=== PATIENT | female | born 1955 | race Two or more races ===

== ENCOUNTER 2021-03-08 02:07 | Emergency (ER) | payer MEDICARE ==
[~2021-03-08] VITALS: Ht 167.6 cm; Wt 100.0 kg
[2021-03-08] MEDS ORDERED: IPRATROPIUM BROMIDE (0.02%) 0.5MG/2.5ML NEB HHN STA ×2 (02:24→04:21)
[2021-03-08] MEDS ORDERED: METHYLPREDNISOLONE SOD SUCC 125 MG/2 ML VIAL IV STA (02:24)
[2021-03-08] MEDS ORDERED: MAGNESIUM 2 G PREMIX 50 ML IV STA (02:24)
[2021-03-08] MEDS ORDERED: ALBUTEROL (0.083%) 2.5MG/3ML NEB HHN STA ×2 (02:24→04:21)
[2021-03-08] MEDS ORDERED: P20 MT (04:23)
[2021-03-08 06:01] VITALS: BP 152/77
== END 2021-03-08 06:05 | disposition home or self-care (01) ==
LOC: ER 02:07
DX: J44.1 Chronic obstructive pulmonary disease with (acute) exacerbation (principal); I10 Essential (primary) hypertension; Z92.89 Personal history of other medical treatment; Z88.0 Allergy status to penicillin
CPT/HCPCS: 71045; 93005; 94644; 96365; 96375; 99285; J2930; J3475

== ENCOUNTER 2021-06-21 11:51 | Emergency (ER) | payer MEDICARE ==
[~2021-06-21] VITALS: Ht 154.9 cm; Wt 77.0 kg
[~2021-06-21 11:51] MED LIST: P20 MT
[2021-06-21] MEDS ORDERED: METHYLPREDNISOLONE SOD SUCC 125 MG/2 ML VIAL IV STA (12:11)
[2021-06-21] MEDS ORDERED: IPRATROPIUM BROMIDE (0.02%) 0.5MG/2.5ML NEB HHN STA (12:11)
[2021-06-21] MEDS ORDERED: KETOROLAC 15MG/ML VIAL IV ONE (12:15)
[2021-06-21] MEDS: ALBUTEROL (0.083%) 2.5MG/3ML NEB HHN SCH ×3 (13:00→13:30)
[2021-06-21 13:10] LABS: HEMATOCRIT. 36.8 % (36.0-48.0); HEMOGLOBIN. 12.7 g/dL (12.0-16.0); MEAN CORPUSCULAR HEMOGLOBIN 29.2 pg (28.0-32.0); MEAN CORPUSCULAR VOLUME 84.8 fL (81.0-99.0); MEAN PLATELET VOLUME 8.5 fl (7.4-10.4); PLATELET 203 x1000/uL (130-400); RED BLOOD CELL COUNT 4.34 mill/uL (4.2-5.4); RED CELL DISTRIBUTION WIDTH 14.4 % (11.6-14.6)
[2021-06-21 13:14] LABS: CHLORIDE 111 mEq/L (98-107)
[2021-06-21 14:04] LABS: PLATELET ESTIMATE NORMAL
[2021-06-21] MEDS ORDERED: AZITHROMYCIN 500 MG/250 ML IV ONE (15:00)
[2021-06-21] MEDS ORDERED: AZITHROMYCIN 500MG/250ML 250 ML IV ONE (15:15)
[2021-06-21] MEDS ORDERED: ONDANSETRON HCL 4MG/2ML INJ IV ONE (16:30)
[2021-06-21 18:32] VITALS: BP 127/78
== END 2021-06-21 18:36 | disposition short-term general hospital (02) ==
LOC: ER 11:51 → CANBEDREQ 18:07 → ER 18:36
DX: J45.901 Unspecified asthma with (acute) exacerbation (principal); J44.1 Chronic obstructive pulmonary disease with (acute) exacerbation; Z20.822 Contact with and (suspected) exposure to COVID-19; I10 Essential (primary) hypertension
CPT/HCPCS: 36415; 71045; 80053; 83880; 84484; 85025; 87426; 93005; 94640; 96374; 96375; 99285; J0456; J1885; J2405; J2930

== ENCOUNTER 2024-07-06 03:30 | Emergency (ER) | payer MEDICARE ==
[~2024-07-06] VITALS: Ht 154.9 cm; Wt 69.0 kg
[~2024-07-06 03:30] MED LIST changes: +ALPR1TAB2 PO; +AMLO10TA80 MT; +BUDE6.9H INH; +DIPH25CA83 PO; +IPRA3AMP9 NEB; +MONT-46 PO; +TRAZ-252 PO
[2024-07-06 03:32] VITALS: TEMP 98.1
[2024-07-06] MEDS ORDERED: DEXAMETHASONE 10 MG/ML VIAL IM ONE (03:45)
[2024-07-06] MEDS: DEXAMETHASONE 10 MG/ML VIAL IV ONE (04:25)
[2024-07-06 04:35] LABS: HEMOGLOBIN. 12.5 g/dL (12.0-16.0); MEAN CORPUSCULAR HEMOGLOBIN 27.8 pg (28.0-32.0); MEAN CORPUSCULAR HGB CONC 31.2 g/dL (31.0-37.0); MEAN CORPUSCULAR VOLUME 89.1 fL (81.0-99.0); MEAN PLATELET VOLUME 8.3 fl (7.4-10.4); PLATELET 212 x1000/uL (130-400); RED BLOOD CELL COUNT 4.49 mill/uL (4.2-5.4); RED CELL DISTRIBUTION WIDTH 15.5 % (11.6-14.6); WHITE BLOOD COUNT 6.3 x1000/uL (4.5-11.0)
[2024-07-06 04:41] LABS: CHLORIDE 110 mEq/L (98-107); POTASSIUM 3.8 mEq/L (3.5-5.1); SODIUM 143 mEq/L (136-145)
[2024-07-06 04:42] LABS: CARBON DIOXIDE 26 mEq/L (21-32)
[2024-07-06 04:43] LABS: CALCIUM 9.2 mg/dL (8.7-10.4)
[2024-07-06 04:45] LABS: DIFFERENTIAL COMMENT 1
[2024-07-06 04:47] LABS: CREATININE 0.7 mg/dL (0.6-1.0); GLUCOSE 87 mg/dL (70-105); UREA NITROGEN BLOOD 8 mg/dL (9-23)
[2024-07-06] MEDS ORDERED: P20 MT (05:12)
[2024-07-06 05:18] VITALS: PULSE 94; RESP 24; O2SAT 97
[2024-07-06] MEDS: IPRATROPIUM/ALBUTEROL 0.5-3(2.5)MG/3ML NEB HHN ONE (05:18)
[2024-07-06 05:37] LABS: PLATELET ESTIMATE NORMAL
[2024-07-06 06:04] VITALS: BP 168/77; PULSE 81; RESP 14; O2SAT 97
== END 2024-07-06 06:09 | disposition home or self-care (01) ==
LOC: ER 03:30
DX: J45.901 Unspecified asthma with (acute) exacerbation (principal); I10 Essential (primary) hypertension; Z98.51 Tubal ligation status; Z98.84 Bariatric surgery status; Z88.5 Allergy status to narcotic agent; Z88.0 Allergy status to penicillin; Z79.899 Other long term (current) drug therapy
CPT/HCPCS: 99284; 96374; 71045; 80048; 85025; 36415; 94640; J1100